=== PATIENT | female | born 1985 | race Asian ===

== ENCOUNTER 2017-10-24 15:56 | Emergency (ER) | payer OTHER ==
[~2017-10-24] VITALS: Ht 165.1 cm; Wt 77.3 kg
[2017-10-24 16:07] VITALS: BP 121/94
== END 2017-10-24 16:57 | disposition home or self-care (01) ==
LOC: EMS 15:56
DX: L70.0 Acne vulgaris (principal)
CPT/HCPCS: 99281

== ENCOUNTER 2018-01-29 17:23 | Emergency (ER) | payer OTHER ==
[~2018-01-29] VITALS: Ht 165.1 cm; Wt 72.7 kg
[2018-01-29 17:25] VITALS: BP 136/64
== END 2018-01-29 18:21 | disposition left against medical advice (07) ==
LOC: EMS 17:24
DX: Z53.21 Procedure and treatment not carried out due to patient leaving prior to being seen by health care provider (principal)

== ENCOUNTER 2021-02-10 16:45 | Emergency (ER) | payer OTHER ==
[~2021-02-10] VITALS: Ht 165.1 cm; Wt 75.0 kg
[2021-02-10 16:49] VITALS: BP 121/72
[2021-02-10] MEDS ORDERED: IBUPROFEN 800 MG TABLET PO ONE (18:00)
== END 2021-02-10 18:26 | disposition home or self-care (01) ==
LOC: EMS 16:45
DX: H65.02 Acute serous otitis media, left ear (principal)
CPT/HCPCS: 99283

== ENCOUNTER 2021-09-23 17:49 | Emergency (ER) | payer OTHER | END 2021-09-23 18:28 | disposition left against medical advice (07) | LOC: EMS 17:57 | DX: Z00.00 Encounter for general adult medical examination without abnormal findings (principal); Z53.21 Procedure and treatment not carried out due to patient leaving prior to being seen by health care provider ==

== ENCOUNTER 2023-04-19 07:44 | Emergency (ER) | payer OTHER ==
[~2023-04-19] VITALS: Ht 165.1 cm; Wt 86.4 kg
[2023-04-19 07:52] VITALS: BP 122/77; PULSE 83; RESP 16; TEMP 97.8
[2023-04-19] MEDS ORDERED: OXYC1TAB6 PO (07:55)
[2023-04-19] MEDS ORDERED: DOCU100C33 PO (07:55)
[2023-04-19] MEDS ORDERED: CEPH250C2 PO (07:55)
[2023-04-19] MEDS ORDERED: CEPH-556 PO (09:00)
[2023-04-19] MEDS ORDERED: DOXY-354 PO (09:00)
[2023-04-19] MEDS ORDERED: DOXYCYCLINE HYCLATE 100 MG TABLET PO ONE (09:00)
== END 2023-04-19 09:25 | disposition home or self-care (01) ==
LOC: EMS 07:44
DX: N61.0 Mastitis without abscess (principal); Z98.890 Other specified postprocedural states
CPT/HCPCS: 99283

== ENCOUNTER 2024-01-05 06:36 | Emergency (ER) | payer OTHER ==
[~2024-01-05] VITALS: Ht 162.6 cm; Wt 86.4 kg
[~2024-01-05 06:36] MED LIST: CEPH-556 PO; CEPH250C2 PO; DOCU100C33 PO; DOXY-354 PO; OXYC1TAB6 PO
[2024-01-05 06:42] VITALS: TEMP 98.6
[2024-01-05 09:15] VITALS: BP 135/88; PULSE 83; RESP 16
[2024-01-05] MEDS ORDERED: IBUP-1554 PO (09:32)
== END 2024-01-05 09:38 | disposition home or self-care (01) ==
LOC: EMS 06:37
DX: S13.4XXA Sprain of ligaments of cervical spine, initial encounter (principal); Z98.890 Other specified postprocedural states; V49.88XA Car occupant (driver) (passenger) injured in other specified transport accidents, initial encounter; Y93.89 Activity, other specified; Y92.89 Other specified places as the place of occurrence of the external cause; Y99.8 Other external cause status
CPT/HCPCS: 71045; 72040; 99284